=== PATIENT | male | born 1965 | race Caucasian/White ===

== ENCOUNTER → 2019-12-30 | Outpatient (CLI) | payer BC ==
--- NOTE | 2019-12-30 13:41 | REPPI ---
LEFT ANKLE, FOUR VIEWS: Four views of the left ankle performed. There is no fracture or dislocation. The ankle mortise is anatomic. No significant calcaneal spurring is seen. There is evidence of narrowing, subchondral sclerosis and spurring at the intertarsal and tarsometatarsal joints. An oval calcific body is seen in the dorsal soft tissues at the level of the tarsometatarsal joints. IMPRESSION: Unremarkable appearance of the left ankle. Moderate degenerative changes of the mid foot. Electronically Signed by Sridhar Sierra MD 01/02/2020 11:38 P
== END ==
LOC: M PLAIMG 11:08
PROVIDERS: ATTEND Family Medicine
DX: M19.079 Primary osteoarthritis, unspecified ankle and foot (principal)

== ENCOUNTER → 2020-05-17 | Outpatient (REF) | payer BC | LOC: M SFHCLERA 09:18 | PROVIDERS: ATTEND Nurse Practitioner Family | DX: Z53.9 Procedure and treatment not carried out, unspecified reason (principal); M25.50 Pain in unspecified joint ==

== ENCOUNTER 2022-01-01 08:17 | Emergency (ER) | payer BC ==
[2022-01-01] MEDS ORDERED: TRAM50TA2 (08:28)
[2022-01-01] MEDS ORDERED: IBUP-1022 (08:28)
[2022-01-01] MEDS ORDERED: LIDOCAINE 5% (LIDODERM) PATCH TD ONE (11:30)
[2022-01-01] MEDS ORDERED: KETOROLAC 60MG 2ML VIAL IM ONE (11:30)
[2022-01-01] MEDS ORDERED: diazePAM 10 MG TAB PO ONE (11:30)
[2022-01-01] MEDS ORDERED: ASPE4PAD TOP (13:08)
[2022-01-01] MEDS ORDERED: TRAM50TA2 PO (13:08)
[2022-01-01] MEDS ORDERED: METH-1165 PO (13:08)
[2022-01-01 13:17] VITALS: BP 147/72
[2022-01-01] MEDS ORDERED: **NOTE PATIENT COMMENT** MISC XX SCH (21:00)
== END 2022-01-01 13:18 | disposition home or self-care (01) ==
LOC: EDBD 08:17 → M ED 08:17
DX: M54.50 Low back pain, unspecified (principal); F17.200 Nicotine dependence, unspecified, uncomplicated; M43.06 Spondylolysis, lumbar region; M51.36 Other intervertebral disc degeneration, lumbar region; Z79.899 Other long term (current) drug therapy
CPT/HCPCS: 72131; 96372; 99284; J1885

== ENCOUNTER → 2022-01-31 | Outpatient (CLI) | payer BC ==
[~2022-01-31] MED LIST: ASPE4PAD TOP; IBUP-1022; METH-1165 PO; TRAM50TA2; TRAM50TA2 PO
== END ==
LOC: M SOG 08:51
PROVIDERS: ATTEND Orthopaedic Surgery
DX: M47.812 Spondylosis without myelopathy or radiculopathy, cervical region (principal); M54.2 Cervicalgia

== ENCOUNTER → 2022-02-13 | Outpatient (CLI) | payer BC | LOC: M PLAIMG 07:10 | PROVIDERS: ATTEND Orthopaedic Surgery | DX: M48.02 Spinal stenosis, cervical region (principal); M47.812 Spondylosis without myelopathy or radiculopathy, cervical region; M50.21 Other cervical disc displacement, high cervical region; M50.221 Other cervical disc displacement at C4-C5 level ==

== ENCOUNTER → 2022-02-20 | Outpatient (CLI) | payer BC | LOC: M RAD 10:00 | PROVIDERS: ATTEND Physician Assistant | DX: M19.041 Primary osteoarthritis, right hand (principal); M25.441 Effusion, right hand; M19.031 Primary osteoarthritis, right wrist | CPT/HCPCS: 78315; A9503 ==

== ENCOUNTER → 2023-01-31 | Outpatient (CLI) | payer BC | LOC: M RAD 08:32 | PROVIDERS: ATTEND Student in an Organized Health Care Education/Training Program | DX: F17.210 Nicotine dependence, cigarettes, uncomplicated (principal) ==

== ENCOUNTER 2023-05-30 11:03 | Day surgery (SDC) | payer BC ==
[~2023-05-30] VITALS: Ht 170.2 cm; Wt 69.0 kg
[~2023-05-30 11:03] MED LIST changes: +GABA-1171 PO; +MELO15TA28 PO; +PANT20TA6 PO; +UNRESOLVED CLARIFICATION ENTRY XX SCH
[2023-05-30] MEDS ORDERED: fentaNYL 100 MCG/2 ML INJECTION As Ordered ONE (11:31)
[2023-05-30] MEDS ORDERED: propofoL 200 MG/20 ML VIAL As Ordered ONE ×2 (12:44→13:12)
[2023-05-30] MEDS ORDERED: ONDANSETRON 4MG 2ML VIAL As Ordered ONE (12:44)
[2023-05-30] MEDS ORDERED: LIDOCAINE 2% 100MG/5ML SDV (FOR ANES.) As Ordered ONE (12:44)
[2023-05-30] MEDS ORDERED: MIDAZOLAM INJ 2MG/2ML VIAL As Ordered ONE (12:46)
[2023-05-30 13:28] VITALS: TEMP 97.9
[2023-05-30 13:47] VITALS: BP 129/63; O2SAT 96
== END 2023-05-30 13:57 | disposition home or self-care (01) ==
LOC: M OPP 11:03
PROVIDERS: ATTEND Internal Medicine Gastroenterology
DX: K57.31 Diverticulosis of large intestine without perforation or abscess with bleeding (principal); D12.2 Benign neoplasm of ascending colon; D12.0 Benign neoplasm of cecum; K64.8 Other hemorrhoids; K63.89 Other specified diseases of intestine; K31.89 Other diseases of stomach and duodenum; K21.9 Gastro-esophageal reflux disease without esophagitis; Z79.899 Other long term (current) drug therapy; Z90.49 Acquired absence of other specified parts of digestive tract; F17.210 Nicotine dependence, cigarettes, uncomplicated
CPT/HCPCS: 43239; 45385; 88305; J2250; J2405; J3010

== ENCOUNTER → 2024-03-08 | Outpatient (CLI) | payer BC ==
[~2024-03-08] MED LIST changes: +CELE0.09 PO; +GABA-282 PO; -UNRESOLVED CLARIFICATION ENTRY XX SCH
[2024-03-08 17:20] LABS: HEMATOCRIT 43.5 % (42.0-52.0); HEMOGLOBIN 15.1 g/dl (13.5-17.5); MEAN CORPUSCULAR HEMOGLOBIN 33.6 pg (27.0-33.0); MEAN CORPUSCULAR HGB CONC 34.7 g/dl (32.0-36.5); MEAN CORPUSCULAR VOLUME 96.7 fl (80.0-96.0); PLATELET COUNT, AUTOMATED 170 10^3/uL (150-450); WHITE BLOOD COUNT 7.1 10^3/uL (4.0-10.0)
== END ==
LOC: M PLALAB 15:08
PROVIDERS: ATTEND Physician Assistant Medical
DX: J40 Bronchitis, not specified as acute or chronic (principal)

== ENCOUNTER → 2024-07-19 | Outpatient (CLI) | payer BC ==
[~2024-07-19] MED LIST changes: +GABA-1172 PO; -GABA-282 PO
== END ==
LOC: M RAD 14:57
PROVIDERS: ATTEND Registered Nurse
DX: Z87.891 Personal history of nicotine dependence (principal)